=== PATIENT | female | born 1980 | race Caucasian/White ===

== ENCOUNTER 2017-08-10 07:28 | Inpatient (IN) | payer OTHER ==
[2017-08-10] MEDS ORDERED: D5LR 0 ML IV ONE (07:42)
[2017-08-10] MEDS ORDERED: LACTATED RINGERS 1,000 ML ONE (07:43)
[2017-08-10] MEDS ORDERED: SUBLIMAZE IV ONE (07:53)
[2017-08-10] MEDS ORDERED: POLYCILLIN/NS 2 GM/100 ML 2 GM/100 ML BAG IV ONE (07:53)
--- NOTE | 2017-08-10 07:59 | History and Physical Report ---
History of Present Illness Date of examination: 08/10/17 Date of admission: 08/10/17 07:28 Chief complaint: Labor. History of present illness: 36 year old pesents to L&D in active labor. Pt. speaks [place] Islander; history obtained with use of language line. Pt. states contractions started at 4:00 AM this morning. Pt. denies leaking of fluid. Pt. denies problems or complications with this . Pt. has had 4 previous vaginal deliveries. labs: O +, Rubella immune, RPR nonreactive, Hepatitis B Surface Antigen negative, HIV negative, GBS positive, elevated 1 hour sugar test but passed her 3 hour OGTT, GC negative, CT negative. 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 denies: smoking, alcohol abuse - Obstetrical History Expected Date of Delivery: 08/24/17 Actual Gestation: 38 Week(s) 0 Day(s) : 6 Para: 4 Hx # Term Pregnancies: 4 Number of Pregnancies: 0 Medications and Allergies Allergies Allergy/AdvReac Type Severity Reaction Status Date / Time No Known Allergies Allergy Verified 08/10/17 07:50 Home Medications Medication Instructions Recorded Confirmed Last Taken Type No Known Home Medications [No 08/10/17 08/10/17 Unknown History Reported Home Medications] Review of Systems All systems: negative (regular contractions since 4:00 AM today) - Vital Signs Vital signs: Vital Signs Pulse Pulse Ox 79 98 08/10/17 07:40 08/10/17 07:40 Temp Pulse Resp BP Pulse Ox 80 99 08/10/17 07:55 08/10/17 07:55 - Physical Exam Breasts: Positive: deferred Cardiovascular: Regular rate Lungs: Positive: Clear to auscultation Abdomen: Positive: normal appearance, soft. Negative: distention, tenderness, guarding Genitourinary (Female): Positive: normal external genitalia, other (no lesions noted on careful exam with bright light upon admission) Vulva: both: normal Vagina: Positive: normal moisture Cervix: Positive: other (7/-1/cephalic) Uterus: Positive: enlarged (gravid) Extremities: Positive: normal - Obstetrical FHR: category 1 Uterine Contraction Monitor Mode: External Cervical Dilatation: 7 Cervical Effacement Percentage: 95 station: -1 Uterine Contraction Pattern: Regular Uterine Contraction Intensity: Moderate Results All other labs normal. Assessment and Plan A: at 38 weeks gestation. GBS positive. P: Admit. GBS prophylaxis. Pt. desires IV pain medication. Anticipate .
[2017-08-10] MEDS ORDERED: LACTATED RINGERS 1,000 ML IV SCH (08:00)
[2017-08-10 08:06] LABS: Basophils % (Auto) 0.5 % (0.0-1.8); Eosinophils % (Auto) 0.5 % (0.0-4.3); Hematocrit 36.2 % (30.3-42.9); Hemoglobin 11.9 gm/dl (10.1-14.3); Lymphocytes # (Auto) 1.6 K/mm3 (1.2-5.4); Lymphocytes % (Auto) 17.4 % (13.4-35.0); Mean Corpuscular HGB Conc 33 % (30-34); Mean Corpuscular Hemoglobin 30 pg (28-32); Mean Corpuscular Volume 90 fl (79-97); Monocytes # (Auto) 0.5 K/mm3 (0.0-0.8); Monocytes % (Auto) 5.8 % (0.0-7.3); Platelet Count 202 K/mm3 (140-440); Red Blood Count 4.03 M/mm3 (3.65-5.03); Red Cell Distribution Width 14.6 % (13.2-15.2)
[2017-08-10] MEDS ORDERED: ZOFRAN ONE (08:11)
[2017-08-10] MEDS ORDERED: BICITRA PO ONE (08:16)
[2017-08-10] MEDS ORDERED: ZOFRAN IV ONE (08:16)
[2017-08-10] MEDS: PITOCin/NS 20 UNIT/1000ML DRIP 20 UNITS/1,000 ML BAG IV SCH ×2 (10:29→12:25)
--- NOTE | 2017-08-10 11:16 | Procedure Note ---
OB Delivery Note - Vaginal Delivery presentation: vertex Delivery position: OA Intrapartum events: none Delivery induction: none Delivery augmentation: rupture of membranes (AROM performed at 9 cm dilation with moderate amount of clear fluid) Delivery monitor: external FHT, external uterine Route of delivery: Delivery placenta: spontaneous Delivery cord: 3 umbilical vessels Episiotomy: none Delivery laceration: none Anesthesia: none ( of liveborn male weighing 7 lb 2 oz at 10:52 with apgars of 8/9. Gentle controlled delivery of head, shoulders, and body. Baby bulb suctioned and dried, then placed on maternal chest. Short 3 vessel cord. Cord double clamped and cut after cessation of pulsation. Cord blood obtained. Spontaneous delivery of intact placenta and membranes by harrison mechanism. Pitocin to IV fluids after delivery of placenta. Fundus firm and midline. Vaginal sweep negative. EBL 200 ml. No lacerations noted. )
[2017-08-10] MEDS ORDERED: PHENERGAN PO PRN (14:17)
[2017-08-10] MEDS ORDERED: TUCKS PAD TP PRN (14:17)
[2017-08-10] MEDS ORDERED: BENADRYL PO PRN (14:17)
[2017-08-10] MEDS ORDERED: MILK OF MAGNESIA PO PRN (14:17)
[2017-08-10] MEDS ORDERED: LANSINOH TP PRN (14:17)
[2017-08-10] MEDS ORDERED: TYLENOL PO PRN (14:17)
[2017-08-10] MEDS ORDERED: PHENERGAN PR PRN (14:17)
[2017-08-10] MEDS ORDERED: PROCTOSOL-HC PR PRN (14:33)
[2017-08-10] MEDS: MOTRIN PO SCH ×2 (14:52→20:22)
[2017-08-10] MEDS ORDERED: PITOCin/NS 20 UNIT/1000ML DRIP 20 UNITS/1,000 ML BAG IV SCH (15:00)
[2017-08-10] MEDS ORDERED: SODIUM CHLORIDE FLUSH SYRINGE 10 ML IV NR (15:00)
[2017-08-10] MEDS: NORCO 5/325 PO PRN (20:22)
[2017-08-11] MEDS: NORCO 5/325 PO PRN (05:16)
[2017-08-11] MEDS: MOTRIN PO SCH ×2 (05:16→23:44)
[2017-08-11 05:43] LABS: Hematocrit 29.2 % (30.3-42.9); Hemoglobin 9.9 gm/dl (10.1-14.3)
[2017-08-11] MEDS ORDERED: BOOSTRIX IM ONE (06:00)
--- NOTE | 2017-08-11 10:10 | Progress Note ---
Assessment and Plan - Patient Problems (1) Status post normal vaginal delivery Current Visit: Yes Status: Acute Plan to address problem: PPD 1 - stable Discharge to home today F/U at [facility] in 6 weeks for exam (2) Anemia in puerperium, baby delivered during current episode of care Current Visit: Yes Status: Acute Plan to address problem: Asymptomatic Start iron therapy with ferrous sulfate 325mg PO qd Subjective - Subjective Date of service: 08/11/17 Principal diagnosis: s/p , PPD 1 Patient reports: appetite normal, voiding normally, pain well controlled, bowel movement, ambulating normally : doing well, nursing well Objective - Vital Signs Latest vital signs: Vital Signs Temp Pulse Resp BP BP Pulse Ox 08/11/17 08:45 97.6 F 74 20 108/64 96 08/11/17 00:06 98.6 F 82 20 110/63 96 08/10/17 21:28 98.8 F 78 20 109/59 96 08/10/17 17:36 98.5 F 80 18 109/50 08/10/17 14:52 18 08/10/17 12:25 98.6 F 78 18 100/64 08/10/17 11:54 76 95/52 08/10/17 11:44 85 108/54 08/10/17 11:35 80 105/53 08/10/17 11:25 85 110/58 08/10/17 11:15 81 114/58 08/10/17 11:05 79 109/59 Intake and Output 08/10/17 08/11/17 08/11/17 23:59 07:59 15:59 Intake Total 360 240 Output Total 800 Balance -440 240 Intake: Oral 240 Intake, Free Water 360 Output: Urine 800 Void 800 Other: Total, Intake Amount 240 Total, Output Amount 800 # Voids Void 1 1 - Exam Abdomen: Present: normal appearance, soft Vulva: both: normal Uterus: Present: normal, firm, fundal height at umbilicus Extremities: Present: normal - Labs Labs: Abnormal lab results 08/11/17 Range/Units 05:25 Hgb 9.9 L (10.1-14.3) gm/dl Hct 29.2 L D (30.3-42.9) %
--- NOTE | 2017-08-11 10:16 | Discharge Summary ---
Providers - Providers Date of Admission: 08/10/17 07:28 Date of discharge: 08/11/17 Attending physician: ROSALBA DOTY MD 08/10/17 14:34 Consult to Sexual Assault Social Worker [CONS] Routine Reason For Exam: Primary care physician: ROSALBA DOTY MD Hospitalization Reason for admission: active labor, IUP at term Delivery: Episiotomy: none Laceration: none Other procedures: none Discharge diagnosis: IUP at term delivered [place] baby: male Hospital course: Asymptomatic Condition at discharge: Stable Disposition: DC-01 TO HOME OR SELFCARE - Discharge Diagnoses (1) Status post normal vaginal delivery Status: Acute (2) Anemia in puerperium, baby delivered during current episode of care Status: Acute Comment: Asymptomatic. Continue iron therapy Plan - Discharge Medications Prescriptions: Ferrous Sulfate [Feosol 325 MG tab] 325 mg PO QDAY #30 tablet - Provider Discharge Summary Activity: routine, no sex for 6 weeks, no heavy lifting 4 weeks, no strenuous exercise Diet: routine Instructions: routine Additional instructions: [] Smoking cessation referral if applicable(refer to patient education folder for contact #) [] Refer to [facility] Booklet Call your doctor immediately for: * Fever > 100.5 * Heavy vaginal bleeding ( >1 pad per hour) * Severe persistent headache * Shortness of breath * Reddened, hot, painful area to leg or breast * Drainage or odor from incision. * Keep incision clean and dry at all times and follow doctor's instructions regarding bathing/showering - Follow up plan Follow up: ROSALBA DOTY MD [Primary Care Provider] - 6 Weeks (F/U at [facility] in 6 weeks for exam)
[2017-08-11] MEDS ORDERED: FEOSOL PO SCH (11:00)
[2017-08-12] MEDS ORDERED: MOTRIN PO SCH (06:00)
[2017-08-12 14:13] VITALS: BP 124/78
== END 2017-08-12 13:35 | disposition home or self-care (01) | DRG 775 ==
LOC: LD 07:28 → OB 13:01
PROVIDERS: ADMIT Obstetrics & Gynecology; ATTEND Obstetrics & Gynecology
PROC: 10E0XZZ Delivery of Products of Conception, External Approach (ICD-10-PCS; principal; 2017-08-10)
PROC: 10907ZC Drainage of Amniotic Fluid, Therapeutic from Products of Conception, Via Natural or Artificial Opening (ICD-10-PCS; 2017-08-10)
PROC: 3E0234Z Introduction of Serum, Toxoid and Vaccine into Muscle, Percutaneous Approach (ICD-10-PCS; 2017-08-11)
DX: O99.824 Streptococcus B carrier state complicating childbirth (principal); Z3A.38 38 weeks gestation of pregnancy; Z37.0 Single live birth; O90.81 Anemia of the puerperium; D64.9 Anemia, unspecified; Z23 Encounter for immunization
CPT/HCPCS: 36415; 85014; 85018; 85025; 86850; 86900; 86901; 88307; 90471; 90715; 99211; A6250; G0463; J2405; J2590; J3010; J7120; J7121

== ENCOUNTER 2019-07-09 07:34 | Inpatient (IN) | payer SELFPAY ==
[2019-07-09] MEDS ORDERED: fentaNYL 100 MCG/2 ML INJ IV PRN (08:34)
[2019-07-09] MEDS ORDERED: TERBUTALINE 1 MG/1 ML INJ IVP PRN (08:34)
[2019-07-09] MEDS ORDERED: ePHEDrine SULFATE 50 MG/1 ML INJ IV PRN (08:34)
[2019-07-09] MEDS ORDERED: BUTORPHANOL 2 MG/1 ML INJ IV PRN ×2 (08:34)
[2019-07-09] MEDS ORDERED: MINERAL OIL 30 ML ORAL LIQD PO PRN (08:34)
[2019-07-09] MEDS ORDERED: LIDOCAINE (2%) 20 MG/1 ML VIAL 20 ML MDV INFILTRATI ONE (08:34)
[2019-07-09] MEDS ORDERED: TERBUTALINE 1 MG/1 ML INJ SUB-Q PRN (08:34)
[2019-07-09] MEDS ORDERED: LACTATED RINGERS 1,000 ML ONE (08:35)
[2019-07-09 08:57] LABS: Basophils % (Auto) 0.4 % (0.0-1.8); Eosinophils % (Auto) 0.4 % (0.0-4.3); Hemoglobin 12.7 gm/dl (10.1-14.3); Lymphocytes # (Auto) 1.5 K/mm3 (1.2-5.4); Lymphocytes % (Auto) 25.3 % (13.4-35.0); Mean Corpuscular HGB Conc 34 % (30-34); Mean Corpuscular Volume 93 fl (79-97); Monocytes # (Auto) 0.3 K/mm3 (0.0-0.8); Platelet Count 153 K/mm3 (140-440); Red Blood Count 3.99 M/mm3 (3.65-5.03)
[2019-07-09] MEDS ORDERED: OXYTOCIN 20 UNIT/1000ML DRIP 20 UNITS/1,000 ML BAG IV SCH (09:00)
[2019-07-09] MEDS ORDERED: LACTATED RINGERS 1,000 ML IV SCH (09:00)
[2019-07-09] MEDS ORDERED: OXYTOCIN DRIP 30 UNITS/500 ML BAG IV SCH (09:00)
--- NOTE | 2019-07-09 10:59 | History and Physical Report ---
History of Present Illness Date of examination: 07/09/19 Date of admission: 07/09/19 Chief complaint: Contractions History of present illness: 38yo G 7 P 5 0 1 5 @ 39 weeks 5 days here with c/o contractions. She reports +FMs and regular, painful uterine ctxs. She denies VB or LOF. She is a [facility] patient who initiated care at 14 weeks gestation. Her course is significant for h/o depression, AMA and GDM diet-controlled. LABS: Opos, Antibody Screen neg, Pap Test normal, RI, VDRL NR, HBsAg neg, HIV neg, GC/CT neg, MSAFP +DS, Diabetes Screen 191, 3hr GTT 88/209/180/147, GBS neg. Past History Past Medical History: other (depression) Past Surgical History: no surgical history Social history: single, lives with family, full code. denies: smoking, alcohol abuse, prescription drug abuse, IV drug use - Obstetrical History Expected Date of Delivery: 07/11/19 Actual Gestation: 39 Week(s) 5 Day(s) : 7 Para: 5 Hx # Term Pregnancies: 0 Number of Pregnancies: 0 Spontaneous Abortions: 1 Induced : 0 Number of Living Children: 5 Medications and Allergies Allergies Allergy/AdvReac Type Severity Reaction Status Date / Time No Known Allergies Allergy Verified 08/10/17 07:50 Home Medications Medication Instructions Recorded Confirmed Last Taken Type Ferrous Sulfate [Feosol 325 MG tab] 325 mg PO QDAY #30 tablet 08/11/17 Unknown Rx Active Meds: Active Medications Butorphanol Tartrate (Stadol) 1 mg IV Q2H PRN PRN Reason: Pain, Moderate(4-6) LABOR PAIN Butorphanol Tartrate (Stadol) 2 mg IV Q2H PRN PRN Reason: Pain , Severe (7-10) Ephedrine Sulfate (Ephedrine Sulfate) 10 mg IV Q2M PRN PRN Reason: Hypotension Fentanyl (Sublimaze) 100 mcg IV Q2H PRN PRN Reason: Pain,Severe (7-10) LABOR PAIN Last Admin: 07/09/19 09:49 Dose: 100 mcg Documented by: Oxytocin/Sodium Chloride (Pitocin/Ns 20 Unit/1000ml Drip) 20 units in 1,000 mls @ 125 mls/hr IV DIRECT SLAVA Last Admin: 07/09/19 10:41 Dose: 125 mls/hr Documented by: Oxytocin/Sodium Chloride (Pitocin/Ns 30 Unit/500ml) 30 units in 500 mls @ 1 mls/hr IV TITR SLAVA; Protocol Lactated Ringer's (Lactated Ringers) 1,000 mls @ 125 mls/hr IV DIRECT SLAVA Mineral Oil (Mineral Oil) 30 ml PO QHS PRN PRN Reason: Constipation Terbutaline Sulfate (Brethine) 0.25 mg SUB-Q ONCE PRN PRN Reason: Hyperstimulation/Hypertonicity Terbutaline Sulfate (Brethine) 0.25 mg IVP ONCE PRN PRN Reason: Hyperstimulation/Hypertonicity Review of Systems All systems: negative - Vital Signs Vital signs: Vital Signs Pulse BP 78 143/83 07/09/19 07:50 07/09/19 07:50 Temp Pulse Resp BP Pulse Ox 99.3 F 69 18 112/70 99 07/09/19 08:29 07/09/19 10:54 07/09/19 08:29 07/09/19 10:50 07/09/19 10:54 - Obstetrical FHR: auscultation normal, category 1 Uterine Contraction Monitor Mode: External Cervical Dilatation: 8 Cervical Effacement Percentage: 90 station: 0 Uterine Contraction Pattern: Regular Results Result Diagrams: 07/09/19 08:30 All other labs normal. Assessment and Plan - Patient Problems (1) 39 weeks gestation of Current Visit: Yes Status: Acute (2) Active labor at term Current Visit: Yes Status: Acute Plan to address problem: Admit to L&D with routine labor orders Anticipate vaginal delivery (3) Gestational diabetes mellitus, class A1 Current Visit: Yes Status: Acute Plan to address problem: Accucheck ordered (4) Advanced maternal age in multigravida Current Visit: Yes Status: Acute Qualifiers: Trimester: third trimester Qualified Code(s): O09.523 - Supervision of elderly multigravida, third trimester
--- NOTE | 2019-07-09 11:17 | Procedure Note ---
OB Delivery Note - Delivery Date of Delivery: 07/09/19 (10:37) Surgeon: FRENCH CRAMER (CNM) Estimated blood loss: 200cc - Vaginal Delivery presentation: vertex Delivery position: OA Intrapartum events: none Delivery induction: none Delivery augmentation: rupture of membranes (AROM @ 08:43, clear, small) Delivery monitor: external FHT, external uterine Route of delivery: (10:37) Delivery placenta: spontaneous (10:41) Episiotomy: none Delivery laceration: none Anesthesia: intravenous Delivery comments: Precipitous RN-assisted of a vigorous term 7 lbs 6 oz female on 07/09/19 @ 10:37. Upon my arrival in the room, mom and baby [id number] with umbilical cord still attached and placenta undelivered. Umbilical cord double-clamped by me and cut by FOB. Cord blood collected. Spontaneous delivery of placenta, Jacquelyn-side presenting @ 10:41. Moderate lochia noted, Fundal massage and IV Pitocin initiated. Fundus F/ML/U with light lochia. Placenta intact, was discarded. No lacerations present. Perineum intact. Mom and baby in stable condition. - A at 1 minute: 8 at 5 minutes: 9 Infant Gender: Female (7 lbs 6 oz (3334 gm) 20 in)
[2019-07-09] MEDS ORDERED: ONDANSETRON 4 MG/2 ML INJ IV PRN (12:11)
[2019-07-09] MEDS ORDERED: diphenhydrAMINE 25 MG CAP PO PRN (12:11)
[2019-07-09] MEDS ORDERED: ACETAMINOPHEN 325 MG TAB PO PRN (12:11)
[2019-07-09] MEDS ORDERED: HYDROcodone/ACETAMINOPHEN 5-325 MG TAB PO PRN (12:11)
[2019-07-09] MEDS ORDERED: PROMETHAZINE 25 MG TAB PO PRN (12:11)
[2019-07-09] MEDS ORDERED: MAGNESIUM HYDROXIDE (MOM) ORAL LIQD UDC PO PRN (12:11)
[2019-07-09] MEDS ORDERED: WITCH HAZEL/ GLYCERIN PAD TP PRN (12:11)
[2019-07-09] MEDS ORDERED: LANOLIN/ZINC/DIMETHICONE (LANSINOH) 7 GM TP PRN (12:11)
[2019-07-09] MEDS ORDERED: PROMETHAZINE 25 MG RECT SUPP PR PRN (12:11)
[2019-07-09] MEDS: IBUPROFEN 600 MG TAB PO SCH (14:30)
[2019-07-10] MEDS: IBUPROFEN 600 MG TAB PO SCH ×3 (03:02→18:19)
[2019-07-10 08:48] LABS: Hematocrit 30.5 % (30.3-42.9); Hemoglobin 10.4 gm/dl (10.1-14.3)
[2019-07-10] MEDS: PRENATAL VIT27-FE FUMARATE-FOLIC ACID VIT TAB PO SCH (10:54)
--- NOTE | 2019-07-10 17:15 | Progress Note ---
Assessment and Plan A: day 1 S/P . Anemia. P: Supplement with iron. Anticipate discharge tomorrow. Subjective - Subjective Date of service: 07/10/19 Principal diagnosis: day 1 S/P Interval history: No complaints. Reports small amount of lochia. Patient reports: appetite normal, voiding normally, pain well controlled, flatus, ambulating normally, no dizzy ambulation, no nauseated [place]: doing well Objective - Vital Signs Latest vital signs: Vital Signs Temp Pulse Resp BP Pulse Ox 07/10/19 15:34 98.2 F 86 18 126/75 95 07/10/19 10:53 20 07/10/19 08:55 98.3 F 84 18 107/54 98 07/10/19 01:57 98.8 F 77 18 107/57 98 07/09/19 21:07 98.9 F 76 20 118/63 98 Intake and Output 07/10/19 07/10/19 07/10/19 07:59 15:59 23:59 Intake Total 480 Output Total 800 Balance -320 Intake: Intake, Free Water 480 Output: Urine 800 Void 800 Other: Total, Output Amount 800 # Voids Void 1 - Exam Cardiovascular: Present: Regular rate, Normal S1, Normal S2 Lungs: Present: Clear to auscultation Abdomen: Present: normal appearance, soft, normal bowel sounds. Absent: di stention, tenderness, guarding, rigidity Uterus: Present: normal, firm, fundal height below umbilicus. Absent: bogginess, tenderness Extremities: Present: normal. Absent: tenderness, edema
[2019-07-10] MEDS: FERROUS SULFATE 325 MG TAB PO SCH (18:20)
[2019-07-11] MEDS: FERROUS SULFATE 325 MG TAB PO SCH (09:11)
[2019-07-11] MEDS: PRENATAL VIT27-FE FUMARATE-FOLIC ACID VIT TAB PO SCH (09:11)
--- NOTE | 2019-07-11 11:46 | Progress Note ---
Assessment and Plan A: day 2 S/P . Anemia. P: Discharge patient home today. Discussed with patient discharge instructions and warning signs. Advised patient to continue taking her vitamins and iron supplements at home. Advised patient to avoid intercourse, lifting and heavy housework. Advised patient to follow up at OB clinic in 6 weeks for exam. Patient voiced understanding of all instructions. Subjective - Subjective Date of service: 07/11/19 Principal diagnosis: day 2 S/P Interval history: Desires discharge home today. Doing well. . Patient reports: appetite normal, voiding normally, pain well controlled, flatus, ambulating normally, no dizzy ambulation, no nauseated [place]: doing well, nursing well Objective - Vital Signs Latest vital signs: Vital Signs Temp Pulse Resp BP BP Pulse Ox 07/11/19 08:27 97.3 F L 79 14 132/78 97 07/11/19 01:26 98.5 F 71 18 130/74 99 07/10/19 18:19 20 07/10/19 15:34 98.2 F 86 18 126/75 95 Intake and Output 07/10/19 07/11/19 07/11/19 23:59 07:59 15:59 Intake Total 744 467 3597 Balance 221 082 9061 Intake: Oral 1840 Intake, Free Water 480 360 Other: Total, Intake Amount 920 Voiding Method Toilet # Voids 1 Void 1 1 1 - Exam Cardiovascular: Present: Regular rate, Normal S1, Normal S2, No murmurs Lungs: Present: Clear to auscultation Abdomen: Present: normal appearance, soft. Absent: distention, tenderness, guarding, rigidity Uterus: Present: normal, firm, fundal height below umbilicus. Absent: bogginess, tenderness Extremities: Present: normal. Absent: tenderness, edema
--- NOTE | 2019-07-11 11:49 | Discharge Summary ---
Providers - Providers Date of Admission: 07/09/19 07:35 Date of discharge: 07/11/19 Attending physician: ANA BERMAN MD Primary care physician: ANA BERMAN MD Hospitalization Reason for admission: active labor Delivery: Episiotomy: none Laceration: none Other procedures: none complications: none Discharge diagnosis: IUP at term delivered baby: female Pertinent studies: Labs Hospital course: Normal hospital course. Condition at discharge: Good Disposition: DC-01 TO HOME OR SELFCARE - Discharge Diagnoses (1) Term delivered Status: Acute (2) Anemia Status: Acute Plan - Provider Discharge Summary Activity: routine, no sex for 6 weeks, no heavy lifting 4 weeks, no strenuous exercise Diet: routine Instructions: routine Additional instructions: Please continue to take your vitamins and iron supplements at home. Follow up at the OB clinic in 2 weeks. Call your doctor immediately for: * Fever > 100.5 * Heavy vaginal bleeding ( >1 pad per hour) * Severe persistent headache * Shortness of breath * Reddened, hot, painful area to leg or breast - Follow up plan Follow up: NAA BERMAN MD [Primary Care Provider] - 14 Days Forms: [facility] Discharge Summary
[2019-07-13 11:30] VITALS: BP 128/70
== END 2019-07-11 15:45 | disposition home or self-care (01) | DRG 807 ==
LOC: LD 07:34 → TRG 07:34 → LD 07:35 → APU 07:37 → TRG 11:12 → OB 13:08
PROVIDERS: ADMIT Obstetrics & Gynecology; ATTEND Obstetrics & Gynecology
PROC: 10E0XZZ Delivery of Products of Conception, External Approach (ICD-10-PCS; principal; 2019-07-09)
PROC: 10907ZC Drainage of Amniotic Fluid, Therapeutic from Products of Conception, Via Natural or Artificial Opening (ICD-10-PCS; 2019-07-09)
DX: O24.420 Gestational diabetes mellitus in childbirth, diet controlled (principal); Z37.0 Single live birth; Z3A.39 39 weeks gestation of pregnancy; O90.81 Anemia of the puerperium; D64.9 Anemia, unspecified
CPT/HCPCS: 36415; 59025; 85014; 85018; 85025; 85027; 86592; 86850; 86900; 86901; 96360; 96365; 96366; 96374; G0378; J2590; J3010; J7120